=== PATIENT | female | born 1935 ===

== ENCOUNTER → 2016-12-13 | Outpatient (CLI) | payer MEDICARE, OTHER ==
--- NOTE | 2016-12-13 16:09 | KCIC ---
MR of the right thumb HISTORY: Osteoarthritis. Right thumb pain, severe, for 6 weeks. No known injury. TECHNIQUE: Routine multiplanar sequences are obtained. FINDINGS: No evidence of acute tear of the radial or ulnar collateral ligament. Mild flexor pollicis signal compatible with mild tendinosis. There is also mild tendon sheath fluid. Extensor structure is intact. No significant joint effusion. Marrow edema identified throughout the distal phalanx of the thumb. No acute fracture or aggressive bone destruction. No loss of fatty signal on the T1-weighted images. There is mild soft tissue edema around the thumb. No organized fluid collection. IMPRESSION: 1. Mild flexor pollicis tendinosis or tenosynovitis. 2. Nonspecific marrow edema within the distal phalanx of the thumb. This could be reactive or marrow contusion. No aggressive bone destruction or acute fracture identified. 3. Mild soft tissue edema at the right thumb without organized fluid collection. Electronically signed by: Demarcus Jara MD (12/13/2016 4:06 PM) [id number]
== END | disposition home or self-care (01) ==
LOC: KCIC MRI 14:58
PROVIDERS: ATTEND Nurse Practitioner Family
DX: M19.041 Primary osteoarthritis, right hand (principal); R60.0 Localized edema
CPT/HCPCS: 73221